=== PATIENT | female | born 1935 | race Caucasian/White ===

== ENCOUNTER 2017-07-31 17:19 | Inpatient (IN) | payer MEDICARE, OTHER ==
[2017-07-31] MEDS ORDERED: NA CHLORIDE 0.9% 100 ML IV ONE (18:16)
[2017-07-31] MEDS ORDERED: CEFEPIME 2 GM VIAL ONE (18:16)
[2017-07-31] MEDS ORDERED: NA CHLORIDE 0.9% 1,000 ML ONE ×2 (18:16→19:35)
[2017-07-31] MEDS ORDERED: FAMOTIDINE 20 MG/2 ML VIAL IV ONE (18:16)
[2017-07-31] MEDS ORDERED: VANCOMYCIN 1 GM/250 ML BAG ONE (18:16)
[2017-07-31 19:05] LABS: Urine Blood TRACE (NEG); Urine Glucose NEGATIVE (NEG); Urine Protein 1+ (NEG); Urine Specific Gravity 1.015 (1.005-1.030)
[2017-07-31 19:51] LABS: Protime INR 1.79
[2017-07-31 19:55] LABS: Potassium 3.3 mEq/L (3.6-5.0)
[2017-07-31 20:01] LABS: Albumin 2.3 g/dL (3.2-5.5); Bilirubin Direct 0.2 mg/dL (0-0.2); Magnesium 2.2 mg/dL (1.8-2.5); Protein, Total 6.9 g/dL (6.0-8.3)
[2017-07-31 20:03] LABS: CKMB Creatine Kinase MB 6.4 ng/ml (0.3-4.0)
--- NOTE | 2017-07-31 20:25 | EDPHYS ---
Physician Documentation [facility] Name: Paz Kc Age: 82 yrs Sex: Female : 1935 Arrival Date: 07/31/2017 Time: 17:21 Bed 2 Private MD: ED Physician Vimal Koch HPI: 07/31 18:06 This 82 yrs old Female presents to ER via EMS with complaints of Altered morelia Mental Status. Historical: - Allergies: 20:16 codeine; lp1 - Home Meds: 20:00 fentanyl 50 mcg/hr Topical pt72 [Active]; Probiotic oral oral [Active]; Dulcolax Oral sv [Active]; levothyroxine oral [Active]; tizanidine oral oral [Active]; Cipro Oral [Active]; Humulin 70/30 Sub-Q [Active]; - PMHx: 19:34 Diabetes - IDDM; Peripheral neuropathy; Sepsis; UTI; sv - PSHx: 19:50 Right mastectomy; sv - Immunization history:: Adult Immunizations up to date. - Social history:: Smoking status: Patient/guardian denies using tobacco. - Family history:: not pertinent. - Ebola Screening: : No symptoms or risks identified at this time. ROS: 18:07 Constitutional: Negative for fever, chills, and weight loss, Eyes: Negative for injury, morelia pain, redness, and discharge, ENT: Negative for injury, pain, and discharge, Neck: Negative for injury, pain, and swelling, Cardiovascular: Negative for chest pain, palpitations, and edema, Respiratory: Negative for shortness of breath, cough, wheezing, and pleuritic chest pain, Back: Negative for injury and pain, : Negative for injury, bleeding, discharge, and swelling, MS/Extremity: Negative for injury and deformity, Psych: Negative for depression, anxiety, suicide ideation, homicidal ideation, and hallucinations, Allergy/Immunology: Negative for hives, rash, and allergies, Endocrine: Negative for neck swelling, polydipsia, polyuria, polyphagia, and marked weight changes, Hematologic/Lymphatic: Negative for swollen nodes, abnormal bleeding, and unusual bruising. 18:07 Abdomen/GI: Positive for abdominal pain, nausea and vomiting, anorexia. 18:07 Skin: Positive for pallor. 18:07 Neuro: Positive for altered mental status, headache, hearing loss, syncope, weakness. Exam: 18:07 Constitutional: This is a well developed, well nourished patient who is awake, alert, morelia and in no acute distress. Head/Face: Normocephalic, atraumatic. Neck: Trachea midline, no thyromegaly or masses palpated, and no cervical lymphadenopathy. Supple, full range of motion without nuchal rigidity, or vertebral point tenderness. No Meningismus. Chest/axilla: Normal chest wall appearance and motion. Nontender with no deformity. No lesions are appreciated. Respiratory: Lungs have equal breath sounds bilaterally, clear to auscultation and percussion. No rales, rhonchi or wheezes noted. No increased work of breathing, no retractions or nasal flaring. Abdomen/GI: Soft, non-tender, with normal bowel sounds. No distension or tympany. No guarding or rebound. No evidence of tenderness throughout. Back: No spinal tenderness. No costovertebral tenderness. Full range of motion. Female : Normal external genitalia. MS/ Extremity: Pulses equal, no cyanosis. Neurovascular intact. Full, normal range of motion. Neuro: Awake and alert, GCS 15, oriented to person, place, time, and situation. Cranial nerves II-XII grossly intact. Motor strength 5/5 in all extremities. Sensory grossly intact. Cerebellar exam normal. Normal gait. Psych: Awake, alert, with orientation to person, place and time. Behavior, mood, and affect are within normal limits. 18:07 Eyes: Conjunctiva: pale. 18:07 Cardiovascular: Rate: tachycardic, Rhythm: Pulses: Pulses are 4+ in bilateral radial, brachial, femoral, popliteal, posterior tibial and and dorsalis pedis arteries.. Heart sounds: normal, JVD: is not appreciated. Vital Signs: 17:38 BP 106 / 75; Pulse 113; Resp 20; Temp 98.4(A); Pulse Ox 99% on R/A; sv 18:30 BP 122 / 75; Pulse 107; Resp 20; Pulse Ox 99% on R/A; sv 19:21 BP 153 / 81; Pulse 107; Resp 20; Pulse Ox 99% ; sv 19:40 BP 119 / 75; Pulse 104; Resp 22; Pulse Ox 99% on R/A; lp1 20:00 BP 142 / 91; Pulse 105; Resp 20; Pulse Ox 97% on R/A; lp1 20:20 BP 122 / 74; Pulse 104; Resp 17; Pulse Ox 98% on R/A; lp1 20:55 BP 122 / 74; Pulse 125; Pulse Ox 95% ; rv 21:00 BP 107 / 77; Pulse 111; Resp 20; Pulse Ox 98% on R/A; lp1 21:58 BP 125 / 85; Pulse 109; Resp 18; Temp 98.1(C); Pulse Ox 98% on R/A; Pain 2/10; mg2 Procedures: 20:17 Central Line: the site was prepped with Betadine, in sterile fashion, a triple lumen [facility] catheter was inserted, in the right in 1 attempts. placement was verified, by blood return, the site was dressed with using sterile technique, the patient tolerated the procedure, well. MDM: 17:36 Patient medically screened. [facility] 18:09 Data reviewed: vital signs, nurses notes, lab test result(s), EKG, radiologic studies. [facility] 07/31 18:05 Order name: Basic Metabolic Panel 07/31 18:05 Order name: BNP; Complete Time: 20:06 07/31 18:05 Order name: CBC with Diff 07/31 18:05 Order name: Ckmb 07/31 18:05 Order name: CPK 07/31 18:05 Order name: LFT's 07/31 18:05 Order name: Magnesium [facility] 07/31 18:05 Order name: PT-INR; Complete Time: 20:06 07/31 18:05 Order name: Ptt, Activated; Complete Time: 20:06 07/31 18:05 Order name: Troponin (emerg Dept Use Only); Complete Time: 20:06 07/31 18:05 Order name: Lipase 07/31 18:05 Order name: Blood Culture Adult (2) 07/31 18:05 Order name: Procalcitonin; Complete Time: 20:16 07/31 18:05 Order name: Lactate; Complete Time: 20:06 07/31 18:05 Order name: XRAY Chest (1 view) 07/31 18:05 Order name: EKG; Complete Time: 18:06 07/31 18:05 Order name: Type And Screen 07/31 18:05 Order name: TSH 07/31 18:05 Order name: Urine Culture [facility] 07/31 18:07 Order name: CT Traumagram (Head C Spine CAP wo con) [facility] 07/31 18:56 Order name: Urine Dipstick--Ancillary (enter results); Complete Time: 20:06 07/31 19:49 Order name: Shoulder Left (2 View) XRAY 07/31 20:35 Order name: CONS Physician Consult [facility] 07/31 21:17 Order name: ABO/RH no charge [facility] 07/31 18:05 Order name: Cardiac monitoring; Complete Time: 18:47 [facility] 07/31 18:05 Order name: EKG - Nurse/Tech; Complete Time: 19:40 [facility] 07/31 18:05 Order name: IV Saline Lock; Complete Time: 19:31 [facility] 07/31 18:05 Order name: Labs collected and sent; Complete Time: 19:31 [facility] 07/31 18:05 Order name: O2 Per Protocol; Complete Time: 18:47 [facility] 07/31 18:05 Order name: O2 Sat Monitoring; Complete Time: 18:48 [facility] 07/31 18:05 Order name: Urine Dipstick-Ancillary (obtain specimen); Complete Time: 18:48 [facility] 07/31 18:05 Order name: Anna; Complete Time: 18:47 [facility] 07/31 20:35 Order name: CONS Physician Consult [facility] 07/31 21:12 Order name: Shoulder Immobilizer; Complete Time: 21:13 lp1 Administered Medications: 19:26 Drug: NS 0.9% 1000 ml Route: IV; Rate: 1 bolus; Site: right femoral; mg2 20:21 Follow up: IV Status: Completed infusion; IV Intake: 1000ml lp1 19:26 Drug: Pepcid 20 mg Route: IVP; Site: right femoral; mg2 20:15 Follow up: Response: No adverse reaction lp1 19:27 Drug: vancoMYCIN 1 grams Route: IVPB; Infused Over: 2 hrs; Site: right femoral; mg2 21:32 Follow up: IV Status: Completed infusion; IV Intake: 250ml lp1 19:28 Drug: Cefepime 2 grams Route: IVPB; Rate: 200 ml/hr; Infused Over: 30 mins; Site: right mg2 femoral; 20:15 Follow up: IV Status: Completed infusion lp1 20:21 Drug: NS 0.9% 1000 ml Route: IV; Rate: 125 ml/hr; Site: right femoral; lp1 22:19 Follow up: IV Status: Infusion continued upon admission mg2 21:10 Drug: Aspirin 162 mg Route: PO; mg2 22:16 Follow up: Response: No adverse reaction mg2 Point of Care Testing: Blood Glucose: 18:20 Blood Glucose: 119 mg/dL; sv Ranges: Critical Glucose Levels:Adult <50 mg/dl or >400 mg/dl <40 mg/dl or >180 mg/dl Disposition: 07/31/17 20:25 Hospitalization ordered by Alan Brooks for Inpatient Admission. Preliminary diagnosis are Altered mental status, unspecified, Weakness, Unspecified kidney failure, Type 1 diabetes mellitus, Fracture of shaft of humerus - pathologic, Hypokalemia, Non-ST elevation (NSTEMI) myocardial infarction. - Bed requested for Intensive Care Unit. - Status is Inpatient Admission. mg2 - Condition is Stable. - Problem is new. - Symptoms have improved. UTI on Admission? No Signatures: Dispatcher [employer] EDRadha Molina RN RN Alethea Cornejo RN RN Vimal Koch MD MD cha Pena, Laura, RN RN lp1 Lilliam Dias Michele, RN RN mg2 Corrections: (The following items were deleted from the chart) 20:43 20:25 Hospitalization Ordered by Alan Brooks MD for Inpatient Admission. Preliminary eb diagnosis is Altered mental status, unspecified; Weakness; Unspecified kidney failure; Type 1 diabetes mellitus; Fracture of shaft of humerus; Hypokalemia; Non-ST elevation (NSTEMI) myocardial infarction. Bed requested for Intensive Care Unit. Status is Inpatient Admission. Condition is Stable. Problem is new. Symptoms have improved. UTI on Admission? No. morelia 20:43 20:43 07/31/2017 20:25 Hospitalization Ordered by Alan Brooks MD for Inpatient Admission. Preliminary diagnosis is Altered mental status, unspecified; Weakness; Unspecified kidney failure; Type 1 diabetes mellitus; Fracture of shaft of humerus; Hypokalemia; Non-ST elevation (NSTEMI) myocardial infarction. Bed requested for Intensive Care Unit. Status is Inpatient Admission. Condition is Stable. Problem is new. Symptoms have improved. UTI on Admission? No. eb 20:46 20:43 07/31/2017 20:25 Hospitalization Ordered by Alan Brooks MD for Inpatient morelia Admission. Preliminary diagnosis is Altered mental status, unspecified; Weakness; Unspecified kidney failure; Type 1 diabetes mellitus; Fracture of shaft of humerus; Hypokalemia; Non-ST elevation (NSTEMI) myocardial infarction. Bed requested for Intensive Care Unit. Status is Inpatient Admission. Condition is Stable. Problem is new. Symptoms have improved. UTI on Admission? No. mw 21:13 20:21 Splint ordered. morelia lp1 22:27 20:46 07/31/2017 20:25 Hospitalization Ordered by Alan Brooks MD for Inpatient mg2 Admission. Preliminary diagnosis is Altered mental status, unspecified; Weakness; Unspecified kidney failure; Type 1 diabetes mellitus; Fracture of shaft of humerus - pathologic; Hypokalemia; Non-ST elevation (NSTEMI) myocardial infarction. Bed requested for Intensive Care Unit. Status is Inpatient Admission. Condition is Stable. Problem is new. Symptoms have improved. UTI on Admission? No. morelia
--- NOTE | 2017-07-31 20:25 | ER ---
Nurse's Notes [facility] Name: Paz Kc Age: 82 yrs Sex: Female : 1935 Arrival Date: 07/31/2017 Time: 17:21 Bed 2 Private MD: Diagnosis: Altered mental status, unspecified;Weakness;Unspecified kidney failure;Type 1 diabetes mellitus;Fracture of shaft of humerus-pathologic;Hypokalemia;Non-ST elevation (NSTEMI) myocardial infarction Presentation: 07/31 17:18 Presenting complaint: EMS states: Pt traveled down from [place] yesterday to [place] sv went to bed last night around 1999, woke up this morning with AMS. Pt recently diagnosed with UTI in [place] and has been taking her Cipro. Pt not answering questioning correctly. Pt not eating or drinking like normal. BS-140 BP 130/80 HR 104 with unifocal PVCs. Transition of care: patient was not received from another setting of care. Onset of symptoms was July 31, 2017. 17:18 Method Of Arrival: EMS: [facility] sv 17:18 Acuity: AUBREY 2 sv 17:19 Risk Assessment: Do you want to hurt yourself or someone else? Patient reports no sv desire to harm self or others. Care prior to arrival: None. 17:38 Initial Sepsis Screen: Does the patient meet any 2 criteria? Altered Mental Status. HR sv > 90 bpm. Yes Does the patient have a suspected source of infection? Yes: Dysuria/Frequency/Urgency/UTI If YES to both, name of provider notified: Vimal Koch MD. Triage Assessment: 17:38 General: Appears uncomfortable, unkempt, Received pt naked with a brief on.. Behavior sv is cooperative, Smells of urine. Pt stated she's unable to roll on her side for me to assess her buttocks. Pt has about 3 paper chucks underneath her that are saturated in urine.. Pain: Complains of pain in left arm, right leg and left leg Pain currently is 5 out of 10 on a pain scale. Is continuous. EENT: No signs and/or symptoms were reported regarding the EENT system. Neuro: Level of Consciousness is awake, alert, obeys commands, confused, Oriented to person, Weakness in bilateral arm(s) leg(s) Speech is normal. Cardiovascular: Patient's skin is warm and dry. Pulses are 2+ in right radial artery and left radial artery. Respiratory: Respiratory effort is even, unlabored, Respiratory pattern is regular, symmetrical. GI: Abdomen is flat, non-distended, Abd is soft and non tender X 4 quads. : Parent/caregiver report the patient having being treated for a UTI. Derm: Skin is normal. Musculoskeletal: Range of motion: limited in left shoulder and left elbow Swelling present in anterior aspect of left shoulder. Historical: - Allergies: 20:16 codeine; lp1 - Home Meds: 20:00 fentanyl 50 mcg/hr Topical pt72 [Active]; Probiotic oral oral [Active]; Dulcolax Oral sv [Active]; levothyroxine oral [Active]; tizanidine oral oral [Active]; Cipro Oral [Active]; Humulin 70/30 Sub-Q [Active]; - PMHx: 19:34 Diabetes - IDDM; Peripheral neuropathy; Sepsis; UTI; sv - PSHx: 19:50 Right mastectomy; sv - Immunization history:: Adult Immunizations up to date. - Social history:: Smoking status: Patient/guardian denies using tobacco. - Family history:: not pertinent. - Ebola Screening: : No symptoms or risks identified at this time. Screenin:37 Abuse screen: Denies threats or abuse. Denies injuries from another. Nutritional sv screening: No deficits noted. Tuberculosis screening: No symptoms or risk factors identified. Fall Risk Fall in past 12 months (25 points). Secondary diagnosis (15 points) impaired mobility, IV access (20 points). Ambulatory Aid- None/Bed Rest/Nurse Assist (0 pts). Gait- Weak (10 pts.). Mental Status- Overestimates/Forgets Limitations (15 pts.). Total Salazar Fall Scale indicates High Risk Score (45 or more points). Fall prevention measures have been instituted. Side Rails Up X 2 Frequent Obs/Assessments Occuring Family Present and informed to notify staff if the need to leave the bedside As available patient and family educated on Fall Prevention Program and Strategies. Assessment: 17:40 Reassessment: Spouse reports that she was taken off of hospice about 3 weeks ago to be sv able to move down here from [place]. 18:30 Reassessment: Patient appears in no apparent distress at this time. No changes from sv previously documented assessment. Patient and/or family updated on plan of care and expected duration. Pain level reassessed. 18:40 Reassessment: Patient cleaned of urinary incontinence and GARZA placed and adhered to L ss upper thigh. 18:49 Reassessment: Dr. Koch at bedside prepping patient for central line placement. ss 19:48 Reassessment: Patient and/or family updated on plan of care and expected duration. Pain mg2 level reassessed. Patient is alert, oriented x 3, equal unlabored respirations, skin warm/dry/pink. 20:00 General: Appears in no apparent distress. Behavior is calm. Pain: Complains of pain in lp1 generalized Quality of pain is described as aching. Neuro: Level of Consciousness is awake, Oriented to person, place, Pupils are PERRLA, Burning in right leg and left leg, related to neuropathy. Cardiovascular: Patient's skin is warm and dry. Rhythm is sinus tachycardia. Respiratory: Airway is patent Respiratory effort is even, Respiratory pattern is regular, Breath sounds are diminished bilaterally. GI: Abdomen is round non-distended, Bowel sounds present X 4 quads. : Garza in place to gravity drainage Urine is cloudy. EENT: No signs and/or symptoms were reported regarding the EENT system. Derm: Skin is fragile, is thin, Skin is dry, Skin is pale. Musculoskeletal: Circulation, motion, and sensation intact. 21:00 Reassessment: Patient appears in no apparent distress at this time. Patient and/or lp1 family updated on plan of care and expected duration. Pain level reassessed. Daughter at bedside, giving water to patient, patient tolerating well. 22:00 Reassessment: Patient appears in no apparent distress at this time. at bedside. mg2 Neuro: Level of Consciousness is awake, Oriented to person, place. Vital Signs: 17:38 BP 106 / 75; Pulse 113; Resp 20; Temp 98.4(A); Pulse Ox 99% on R/A; sv 18:30 BP 122 / 75; Pulse 107; Resp 20; Pulse Ox 99% on R/A; sv 19:21 BP 153 / 81; Pulse 107; Resp 20; Pulse Ox 99% ; sv 19:40 BP 119 / 75; Pulse 104; Resp 22; Pulse Ox 99% on R/A; lp1 20:00 BP 142 / 91; Pulse 105; Resp 20; Pulse Ox 97% on R/A; lp1 20:20 BP 122 / 74; Pulse 104; Resp 17; Pulse Ox 98% on R/A; lp1 20:55 BP 122 / 74; Pulse 125; Pulse Ox 95% ; rv 21:00 BP 107 / 77; Pulse 111; Resp 20; Pulse Ox 98% on R/A; lp1 21:58 BP 125 / 85; Pulse 109; Resp 18; Temp 98.1(C); Pulse Ox 98% on R/A; Pain 2/10; mg2 ED Course: 17:21 Patient arrived in ED. sv 17:21 Radha Pan, RN is Primary Nurse. sv 17:26 Triage completed. sv 17:30 Arm band placed on right wrist. sv 17:30 Patient has correct armband on for positive identification. Placed in gown. Bed in low sv position. Side rails up X2. Adult w/ patient. monitoring coordinator on. Pulse ox on. NIBP on. Warm blanket given. 17:36 Vimal Koch MD is Attending Physician. morelia 17:50 Missed attempt(s): 18 gauge in left EJ, by Dr Koch x4 attempts. Bleeding sv controlled, band aid applied, catheter tip intact. 18:20 Inserted saline lock: 24 gauge in right ,using aseptic technique. 2nd knuckle Flushed sv right with 5 ml normal saline. 18:40 Garza cath inserted, using sterile technique, 16 Fr., by ED staff, balloon inflated, to ss gravity drainage, urine specimen collected. returned trice urine. Patient tolerated well. 18:45 Radiology exam delayed due to CENTRAL LINE BEING PLACED. ag1 18:50 Urine collected: Garza catheter specimen, cloudy. sv 19:00 Assisted provider with central line placement. Set up central line tray. Triple lumen sv line placed in right femoral. Line placed by Vimal Koch MD Placement verified by blood return, Dressed with Tegaderm, Blood was collected. Patient tolerated well. Before procedure, did Practitioner(s) obtain informed consent? No. Patient \T\ family education about procedure, CLABSI prevention and S/S of infection? Yes. Time-out/Briefing performed prior to start of procedure? Yes. Was handwashing/sanitizing done immediately prior to procedure? Yes. Was patient positioned to in a way to prevent air embolism? Yes. Was procedure site sterilized? Yes, with chlorhexidine. Was the site allowed to dry? Yes. Was local anesthetic and/or sedation utilized? Yes. During the procedure, did the Practitioner(s) maintain a sterile field? Yes. Were unused ports clamped during insertion? Yes. Was a 2nd qualified MD obtained after 3 unsuccessful insertion attempts? Yes. Was blood aspirated from each lumen? Yes. After the procedure, did the Practitioner(s) clean the site and apply a sterile dressing? Yes. 19:00 First set of blood cultures drawn by physician. T\T\S collected, blood band applied to sv patient. 19:15 Second set of blood cultures drawn by physician. sv 19:20 One-on-one care X 120 minutes. sv 19:20 Report given to Shanel AGUILAR. sv 19:58 Primary Nurse role handed off by Radha Pan RN sv 20:01 X-ray completed. Portable x-ray completed in exam room. Patient tolerated procedure ag1 well. 20:04 XRAY Chest (1 view) In Process Unspecified. EDMS 20:04 CT Traumagram (Head C Spine CAP wo con) In Process Unspecified. EDMS 20:04 Shoulder Left (2 View) XRAY In Process Unspecified. EDMS 20:22 Alan Brooks MD is Hospitalizing Provider. [facility] 20:27 Shanel Segura, JEFF is Primary Nurse. lp1 21:10 Patient admitted, IV remains in place. lp1 21:12 Shoulder immobilizer applied on left shoulder. lp1 Administered Medications: 19:26 Drug: NS 0.9% 1000 ml Route: IV; Rate: 1 bolus; Site: right femoral; mg2 20:21 Follow up: IV Status: Completed infusion; IV Intake: 1000ml lp1 19:26 Drug: Pepcid 20 mg Route: IVP; Site: right femoral; mg2 20:15 Follow up: Response: No adverse reaction lp1 19:27 Drug: vancoMYCIN 1 grams Route: IVPB; Infused Over: 2 hrs; Site: right femoral; mg2 21:32 Follow up: IV Status: Completed infusion; IV Intake: 250ml lp1 19:28 Drug: Cefepime 2 grams Route: IVPB; Rate: 200 ml/hr; Infused Over: 30 mins; Site: right mg2 femoral; 20:15 Follow up: IV Status: Completed infusion lp1 20:21 Drug: NS 0.9% 1000 ml Route: IV; Rate: 125 ml/hr; Site: right femoral; lp1 22:19 Follow up: IV Status: Infusion continued upon admission mg2 21:10 Drug: Aspirin 162 mg Route: PO; mg2 22:16 Follow up: Response: No adverse reaction mg2 Point of Care Testing: Blood Glucose: 18:20 Blood Glucose: 119 mg/dL; sv Ranges: Intake: 20:21 IV: 1000ml; Total: 1000ml. lp1 20:21 IV: 1000ml (IV Fluid); Total: 2000ml. lp1 21:32 IV: 250ml; Total: 2250ml. lp1 Output: 22:18 Urine: 650ml (Garza); Total: 650ml. mg2 Outcome: 20:25 Decision to Hospitalize by Provider. [facility] 21:10 Condition: stable lp1 21:10 Instructed on the need for admit, to patient's and daughter 22:20 Admitted to ICU accompanied by nurse, via stretcher, room 7, on monitor, with chart, mg2 Report called to Nurse Bustillo 22:27 Patient left the ED. mg2 Signatures: Dispatcher [employer] EDMS Radha Pan, RN RN sv Vimal Koch MD MD cha Smirch, Shelby, RN RN ss Shanel Segura RN RN lp1 Enma Sandoval ag1 Robi Pandey, JEFF AGUILAR mg2 Elie York RN RN rv Corrections: (The following items were deleted from the chart) 22:19 22:18 Urine 650, (Garza), Output Total 650. mg2 mg2 22:21 22:20 Admitted to ICU accompanied by nurse, via stretcher, on monitor, with chart, mg2 Report called to Nurse Bustillo mg2
[2017-07-31 20:27] LABS: Absolute Lymphocytes (CBC) 0.9 K/uL (0.7-4.9); Absolute Monocytes 1.2 K/uL (0.1-1.3); Absolute Neutrophil 11.1 K/uL (1.8-8.0); Basophils % 0.4 % (0-1.3); Eosinophils % 0.1 % (0-4.4); Hematocrit 41.8 % (36.0-45.0); MCH 28.1 pg (27.0-35.0); MCV 82.2 fL (80-100); MPV 8.5 fL (7.6-11.3); Monocytes % 9.2 % (3.3-12.3); RBC Red Blood Cell Count 5.08 M/uL (3.86-4.86)
[2017-07-31 20:33] LABS: Thyroid Stimulating Hormone 2.44 uIU/mL (0.34-5.60)
[2017-07-31] MEDS ORDERED: ASPIRIN EC 81 MG TAB PO ONE (20:35)
--- NOTE | 2017-07-31 20:37 | RAD REPORT ---
EXAM DESCRIPTION: CT - Head C Spine Cap Wo Con - 07/31/2017 8:04 pm CLINICAL HISTORY: Head and neck pain. Radiculopathy. Chest and abdominal pain. Genitourinary infecti on. TECHNIQUE: Computed axial tomography of the head and cervical spine was obtained. Coronal and sagitt al reconstruction was performed Computed axial tomography of the chest, abdomen and pelvis was obtained. Contrast was not requested. All CT scans are performed using dose optimization technique as appropriate and may include automated exposure control or mA/KV adjustment according to patient size. COMPARISON: None FINDINGS: The evaluation of the mediastinum, tessa, vessels, solid organs and bowel is limited second andrés to lack of contrast administration. Mild low-density areas within periventricular, deep and subcortical white matter likely represent isc hemic changes secondary to small vessel disease. An intracranial bleed is not noted. The ventricles are normal caliber. An extra-axial fluid collection is not noted. Fluid is present within the sphenoid sinus. A cervical fracture is not seen. No dislocation is noted. A large anterior osteophyte C6-7 results in narrowing of the thecal sac which measures 8 millimeters. Spondylosis at this level results in marke d narrowing of the left neural foramina. Spondylosis C5-6 results in moderate to marked narrowing of the neural foramina bilaterally. Basilar invagination involves C2 A 26 millimeter nodule is present within the right upper lobe. A 13 millimeter left upper lobe nodule seen. A 14 millimeter right middle lobe nodules present. A conglomerate of right paratracheal lymph nodes measures 6.2 x 3.4 centimeters in total. A [address] anterior mediastinal lymph node is present. Additional smaller mediastinal and right hilar lymph nodes are present. An 18 millimeter lesion involves the posterior tenth left rib resulting in a fracture. Multiple thora cic and lumbar vertebral lesions are present. Proximal femora lesions are seen. Pelvic bone lesions a re noted. Pathologic left humeral fracture is seen. Additional rib lesions are present. The liver, spleen, pancreas and kidneys demonstrate no gross abnormality. Bilateral adrenal masses ar e noted. A Anna catheter is present within the bladder. IMPRESSION: 1. No acute intracranial abnormality is seen. 2. A cervical fracture is not visualized. 3. 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 4, 4. Lung nodules, adrenal masses, bone lesions and lung nodules consistent with metastatic disease
[2017-07-31] MEDS ORDERED: ONDANSETRON 4 MG/2 ML VIAL IV PRN (21:57)
[2017-07-31] MEDS ORDERED: ACETAMINOPHEN 500 MG TAB PO PRN (21:57)
[2017-07-31] MEDS: NA CHLORIDE 0.9% 1,000 ML IV SCH (22:00)
--- NOTE | 2017-07-31 22:14 | P.HP ---
Certification for Inpatient Patient admitted to: Inpatient With expected LOS: >2 Midnights Practitioner: I am a practitioner with admitting privileges, knowledge of patient current condition, hospital course, and medical plan of care. Services: Services provided to patient in accordance with Admission requirements found in Title 42 Section 412.3 of the Code of Federal Regulations Patient History Date of Service: 07/31/17 Reason for admission: acute encephalopathy History of Present Illness: Ms cK is an 82 years old woman with history of breast cancer, hypothyroidism , IDDM, osteomyelitis, who is mostly bed bound for the last year, recently moved from [place], came to ED because decreased level of conscious. According to her , who is the one who provide the history, the patient was more sleepy than usual today. She was also confused and disoriented. No history of fever or chills. She has been treated with PO Cipro due to recent diagnosis or UTI. At my encounter, the patient is awake and alert, and able to answer my questions, she complain of pain all over. Lab work remarkable for leukocytosis, abnormal renal function, elevated tropoinin I, hypokelemia, and elevated procalcitonin. She had a CT head/cervical spine/chest/abd/pelvis which was negative for intracranial abnormalities, however she has lung nodules, adrenal masses, bone lesions and lung nodules consistent with metastatic disease. Allergies codeine Allergy (Unverified 07/31/17 21:18) Itching/Hives/Rash - Past Medical/Surgical History -: History of breast cancer -: IDDM -: Hypothyroidism -: Mastectomy - Family History Family History: Reviewed- Non-Contributory - Social History CD- Drugs: No Place of Residence: Home Review of Systems 10-point ROS is otherwise unremarkable Physical Examination - Physical Exam General: Alert HEENT: Atraumatic, PERRLA, Mucous membr. moist/pink, EOMI, Sclerae nonicteric Neck: Supple, 2+ carotid pulse no bruit, No LAD, Without JVD or thyroid abnormality Respiratory: Normal air movement, Other (coarse bilateral) Cardiovascular: Regular rate/rhythm, Normal S1 S2 Gastrointestinal: Normal bowel sounds, No tenderness Musculoskeletal: No tenderness Integumentary: No rashes Neurological: Normal speech, Normal tone, Abnormal affect (flat) Lymphatics: No axilla or inguinal lymphadenopathy - Studies Laboratory Data (last 24 hrs) 07/31/17 19:00: PT 21.3 H, INR 1.79, APTT 18.6 L 07/31/17 19:00: WBC 13.3 H, Hgb 14.3, Hct 41.8, Plt Count 193 07/31/17 19:00: B-Natriuretic Peptide 52 07/31/17 19:00: Sodium 134 L, Potassium 3.3 L, BUN 68 H, Creatinine 2.40 H, Glucose 133 H, Magnesium 2.2, Total Bilirubin 1.0, AST 35, ALT 20, Alkaline Phosphatase 104, Lipase 21 L Assessment and Plan - Problems (Diagnosis) (1) Acute encephalopathy Current Visit: Yes Status: Acute (2) UTI (urinary tract infection) Current Visit: Yes Status: Acute Qualifiers: Urinary tract infection type: acute cystitis Hematuria presence: without hematuria Qualified Code(s): N30.00 - Acute cystitis without hematuria (3) Metastatic cancer Current Visit: Yes Status: Acute (4) IDDM (insulin dependent diabetes mellitus) Current Visit: Yes Status: Acute - Plan The patient will be admitted to the hospital due to acute encephalopathy. She has leukocytosis, and elevated procalcitonin, she is currently taking oral Cipro due to UTI. Will change antibiotics to Ceftriaxone, blood and urine culture are in process. Will order IV fluids, consult nephrology. The patient has no had chest pain, troponin I is elevated. Cardiology was consulted. Will repeat serial troponin I. The patient has metastatic disease, with not clear primary. I have spoken with her and daughter about current status and prognosis. They need to decide goals and further plan for the patient. At this consider Hospice as potential option. - Advance Directives Does patient have a Living Will: No Does patient have a Durable POA for Healthcare: No - Code Status/Comfort Care Code Status Assessed: Yes Code Status: Do Not Resuscitate
--- NOTE | 2017-07-31 22:27 | RAD REPORT ---
EXAM DESCRIPTION: Song Single View07/31/2017 8:04 pm CLINICAL HISTORY: Chest pain COMPARISON: none FINDINGS: A large mediastinal mass is present. Bilateral pulmonary nodules are seen. The heart is n ormal size. A pathologic fracture involves the left humerus. IMPRESSION: Metastatic disease
[2017-08-01] MEDS: INSULIN -REGULAR HUMAN 50 UNIT/0.5 ML ML SQ SCH ×5 (00:01→21:00)
[2017-08-01] MEDS: KCL 20 MEQ/100 mL IVPB 20 MEQ/100 ML BAG IV SCH ×2 (00:29→01:43)
[2017-08-01 05:18] LABS: Albumin 2.2 g/dL (3.2-5.5); Bilirubin Total 0.7 mg/dL (0.3-1.2); Potassium 4.2 mEq/L (3.6-5.0); Protein, Total 6.1 g/dL (6.0-8.3)
[2017-08-01] MEDS: NA CHLORIDE 0.9% 1,000 ML IV SCH ×2 (07:09→17:48)
[2017-08-01 08:22] LABS: CKMB Creatine Kinase MB 5.7 ng/ml (0.3-4.0); Uric Acid 9.2 mg/dL (2.6-8.0)
[2017-08-01] MEDS ORDERED: ASPIRIN 81 MG CHEWABLE TABLET PO SCH (09:00)
[2017-08-01] MEDS ORDERED: CIPROFLOXACIN 400mg IV 200 ML IV SCH (09:00)
[2017-08-01] MEDS ORDERED: CEFTRIAXONE 1 GM/NS 50 ML 1 GM/50 ML BAG IV SCH (09:00)
[2017-08-01] MEDS: CEFTRIAXONE/SWI 1gm 1 GM/10 ML SYR IV SCH (09:04)
[2017-08-01] MEDS: ENOXAPARIN 80 MG/0.8 ML SQ SCH (09:05)
--- NOTE | 2017-08-01 10:15 | RAD REPORT ---
EXAM DESCRIPTION: US - Renal Ultrasound-Complete - 08/01/2017 9:23 am CLINICAL HISTORY: . Renal failure COMPARISON: None. FINDINGS: The right kidney measures 10 cm with a normal echotexture. The left kidney measures 10 cm with a normal echotexture. A 1 centimeters cyst extends off of the upp er pole Hydronephrosis is not seen. IMPRESSION: 1 centimeter left renal cyst
--- NOTE | 2017-08-01 10:15 | RAD REPORT ---
EXAM DESCRIPTION: RAD - Shoulder Left 2 View - 07/31/2017 8:05 pm CLINICAL HISTORY: Left shoulder pain FINDINGS: A lucency is present within the proximal left humerus measuring 8 centimeters. A pathologi c fracture is seen in this region with mild displacement of the fracture fragments. The bones are ost eoporotic
[2017-08-01] MEDS ORDERED: FENTANYL CITR 100 MCG/2 ML IV PRN (12:11)
[2017-08-01] MEDS ORDERED: NAPROXEN 250 MG TAB PO PRN (12:19)
[2017-08-01] MEDS ORDERED: FENTANYL CITR 100 MCG/2 ML IV ONE (14:47)
--- NOTE | 2017-08-01 15:02 | EKG ---
Test Date: 2017-07-31 Test Time: 19:36:45 Medical Office Supervisor: MG MEASUREMENT RESULTS: Intervals: Rate: 104 WY: 152 QRSD: 94 QT: 342 QTc: 449 [place]: P: 50 WY: 152 QRS: -39 T: 78 INTERPRETIVE STATEMENTS: Sinus tachycardia Possible Left atrial enlargement Left axis deviation Left ventricular hypertrophy with repolarization abnormality Cannot rule out Septal infarct, age undetermined Abnormal ECG No previous ECG available for comparison Electronically Signed On 08-01-17 14:59:13 CDT by Hero Bradley
--- NOTE | 2017-08-01 15:02 | EKG ---
Test Date: 2017-07-31 Test Time: 19:51:50 Motorcycle Service Technician: MG MEASUREMENT RESULTS: Intervals: Rate: 91 [place]: 174 QRSD: 88 QT: 344 QTc: 423 [place]: P: 36 OH: 174 QRS: 46 T: 4 INTERPRETIVE STATEMENTS: Normal sinus rhythm Normal ECG No previous ECG available for comparison Electronically Signed On 08-01-17 14:59:12 CDT by Hero Bradley
--- NOTE | 2017-08-01 15:02 | EKG ---
Test Date: 2017-07-31 Test Time: 19:51:20 Assistant Librarian: MEASUREMENT RESULTS: Intervals: Rate: 89 IA: 178 QRSD: 88 QT: 324 QTc: 394 [place]: P: 36 IA: 178 QRS: 47 T: -1 INTERPRETIVE STATEMENTS: Normal sinus rhythm Normal ECG Compared to ECG 07/31/2017 19:36:45 Sinus tachycardia no longer present Left-axis deviation no longer present Left ventricular hypertrophy no longer present Early repolarization no longer present Myocardial infarct finding no longer present Electronically Signed On 08-01-17 14:59:12 CDT by Hero Bradley
--- NOTE | 2017-08-01 15:26 | ECHO ---
HEIGHT: 5 ft 9 in WEIGHT: 169 lb 3.2 oz DATE OF STUDY: 08/01/[address]: 2-DIMENSIONAL: YES M.MODE: YES DOPPLER: YES COLOR FLOW: YES TDS: NO PORTABLE: NO DEFINITY: NO BUBBLE STUDY: NO DIAGNOSIS: NSTEMI CARDIAC HISTORY: CATHERIZATION: NO SURGERY: NO PROSTHETIC VALVE: NO PACEMAKER: NO MEASUREMENTS (cm) DIASTOLIC (NORMALS) SYSTOLIC (NORMALS) IVSd 0.9 (0.6-1.2) LA Diam (1.9-4.0) LVEF 66% LVIDd 3.2 (3.5-5.7) LVIDs 2.1 (2.0-3.5) %FS 35% LVPWd 0.9 (0.6-1.2) Ao Diam 2.7 (2.0-3.7) 2 DIMENSIONAL ASSESSMENT: RIGHT ATRIUM: NORMAL LEFT ATRIUM: NORMAL RIGHT VENTRICLE: NORMAL LEFT VENTRICLE: NORMAL TRICUSPID VALVE: NORMAL MITRAL VALVE: NORMAL PULMONIC VALVE: NORMAL AORTIC VALVE: SCLEROSIS PERICARDIAL EFFUSION: NONE AORTIC ROOT: NORMAL LEFT VENTRICULAR WALL MOTION: NORMAL DOPPLER/COLOR FLOW: INCOMPLETE COMMENTS: TECHNICALLY DIFFICULT STUDY DUE TO PATIENT REQUESTING TO STOP TEST. AORTIC SCLEROSIS. CANNOT RULE OUT MILD STENOSIS WITH NO DOPPLER. MILD TRICUSPID REGURGITATION. NORMAL RIGHT VENTRICULAR SYSTOLIC PRESSURE. TECHNOLOGIST: CHIRAG ESCOABR
--- NOTE | 2017-08-01 17:33 | PN ---
Date of Progress Note: 08/01/2017 Subjective: The patient is seen and examined. Chart reviewed and case discussed with RN and Dr. Jeremias sparks. The patient's family at bedside. The patient keeps complaining of pain overall including shoulde r and back, stepped out of ICU this morning. Review of Systems: Limited due to patient's medical condition; however, negative otherwise. Medications: Reviewed. Physical Examination: Vital Signs: Temperature 96.8, heart rate 82, blood pressure 100/59, respirations 15, and O2 99% on 1 L via nasal cannula. General: Awake, alert, oriented x2. Moderate distress due to pain. Elderly female, frail, ill-appe aring. CV: S1, S2. Systolic murmur 3/6. Regular rate and rhythm. Peripheral pulses are weak bilaterally. Respiratory: Moving air well bilaterally. No wheezing. Gastrointestinal: Abdomen is soft, nontender, nondistended. Positive bowel sounds. Extremities: No clubbing, cyanosis, or edema. Neurologic: Nonfocal. Musculoskeletal: Tenderness to palpation, left shoulder, which is in immobilizer. Laboratory Data: Sodium 136, potassium 4.2, chloride 100, CO2 27, BUN 73, creatinine 2.10, glucose 1 65, uric acid 9.2, calcium 9.9, troponin 0.051, 0.46. Albumin 2.2. Urine culture and blood cultures pending. Renal ultrasound shows 1 cm left renal cyst. Assessment And Plan: An 82-year-old female with: 1.Acute metabolic encephalopathy, likely related to urinary tract infection and metastatic disease. The patient is more alert and oriented x2. Continues to be in pain. 2.Urinary tract infection. Acute cystitis without hematuria. We will continue Rocephin. Follow up on urine culture. 3.Diffuse metastatic disease, likely stage IV, with an unclear primary and may be recurrent breast c ancer. She was initially diagnosed in the 60s and had mastectomy. I spoke with oncologist on-call, Dr. Carroll. She agrees with overall poor prognosis, incurable stage IV disease of unknown primary. Re commend hospice care. 4.Diabetes mellitus type 2, insulin dependent with hyperglycemia. We will continue sliding scale in sulin. 5.Hypothyroidism. Continue Synthroid. 6.Acute versus acute on chronic kidney injury. Creatinine slightly improved. We will continue with IV fluid hydration. 7.Non-ST elevation myocardial infarction. Troponin level elevated at 0.51 on therapeutic Lovenox. The patient is n.p.o. due to aspiration risk. 8.Dysphagia. The patient at risk for aspiration, failed bedside swallow study. We will obtain rocío fied barium swallow study. Continue speech therapy. Plan: Overall, very poor prognosis. Recommend going back on hospice. The patient's family stated t hat she has used [facility] previously. would like some time to discuss with the patient and make a decision. For now, we will continue active care. The patient is do not resuscitate. We will swapnil nue with pain control. /LUDA Voice ID: [id number] Report ID: [id number]
[2017-08-01] MEDS: METHOCARBAMOL 1,000 MG in NA CHLORIDE 0.9% 100 ML IV PRN (17:46)
[2017-08-01] MEDS ORDERED: TIZANIDINE 4 MG TABLET PO SCH (18:00)
[2017-08-01] MEDS: FENTANYL CITR 100 MCG/2 ML IV PRN (22:22)
[2017-08-02] MEDS: NA CHLORIDE 0.9% 1,000 ML IV SCH (03:18)
--- NOTE | 2017-08-02 05:40 | CON ---
Date of Consultation: 08/01/2017 Additional Admitting Physician: Katy Steele MD. Reason For Consultation: Elevated troponin. History Of Present Illness: Ms. Kc is an 82-year-old woman who came into the emergency room with altered mental status, renal failure, and was noted to have elevated troponin. I was consulted. She is a DNR. She has metastatic breast cancer. There is a consideration for hospice. Chest x-ray [place] wed metastatic disease. Did not really have any chest pain. Past Medical History: As stated above. Allergies: NONE. Review of Systems: Negative. Social History: Negative. Family History: Noncontributory. Physical Examination: General: Ms. Kc was rather somnolent, slightly confused, sinus rhythm. Vital signs: Stable. HEENT: Negative. Neck: Supple with no bruit. Chest: Clear. Cardiac: Revealed a regular rhythm and rate with an S4 gallops. No murmurs or rubs. Abdomen: Benign. Extremities: Revealed no clubbing, cyanosis, or edema. Diagnostic Data: Creatinine 2.10 troponin 0.54. Chest x-ray showed metastatic disease __ lymphadenopathy. Impression And Plan: 1.Elevated troponin, most likely secondary to renal failure. 2.Altered mental status, possibly secondary to metastatic breast cancer. 3.Elevated white count. 4.Diabetes. 5.Hypothyroidism. Apparently, there is a talk about the hospice care. The patient is a DNR. Echocardiogram is pending . I will check that before making a final decision, but I certainly would not get very aggressive wi th Ms. Kc. Her creatinine needs to be watched carefully. NB/MODL Voice ID: [id number] Report ID: [id number]
[2017-08-02] MEDS ORDERED: LEVOTHYROXINE SOD 0.075 MG TAB PO SCH (06:00)
[2017-08-02 06:29] LABS: Albumin 2.2 g/dL (3.2-5.5); Potassium 4.2 mEq/L (3.6-5.0); Thyroid Stimulating Hormone 1.17 uIU/mL (0.34-5.60)
[2017-08-02] MEDS: FENTANYL CITR 100 MCG/2 ML IV PRN (07:11)
[2017-08-02] MEDS: INSULIN -REGULAR HUMAN 50 UNIT/0.5 ML ML SQ SCH ×2 (07:30→12:45)
[2017-08-02] MEDS: ENOXAPARIN 80 MG/0.8 ML SQ SCH (08:20)
[2017-08-02] MEDS: CEFTRIAXONE/SWI 1gm 1 GM/10 ML SYR IV SCH (08:21)
[2017-08-02] MEDS ORDERED: FENTANYL 50 MCG/PATCH TD SCH (09:00)
[2017-08-02] MEDS ORDERED: DOCUSATE NA 100 MG CAP PO SCH (09:00)
[2017-08-02] MEDS ORDERED: LACTOBACILLUS/ACIDOPHILUS TAB PO SCH (09:00)
[2017-08-02] MEDS: METHOCARBAMOL 1,000 MG in NA CHLORIDE 0.9% 100 ML IV PRN (10:50)
--- NOTE | 2017-08-02 14:25 | DS ---
Date of Discharge: 08/02/2017 Consultants: 1.Dr. Bradley with Cardiology. 2.Dr. Montes with Nephrology. Admitting Diagnoses: 1.[id number] myocardial infarction. 2.Acute metabolic encephalopathy. 3.Urinary tract infection, acute cystitis without hematuria. 4.Metastatic cancer. 5.Diabetes mellitus type 2, insulin requiring with hyperglycemia. Discharge Diagnoses: 1.Acute metabolic encephalopathy related to urinary tract infection and metastatic disease. 2.Urinary tract infection, acute cystitis without hematuria. 3.Diffuse metastatic disease, stage 4 cancer, not a candidate for treatment, palliative only, incura ble disease. Oncology recommends hospice. 4.Diabetes mellitus type 2, insulin dependent with hyperglycemia. 5.Hypothyroidism. We will continue with Synthroid. 6.Acute versus acute on chronic kidney injury. Creatinine improved slightly. 7.Dysphagia. 8.Pathologic left humerus fracture. 9.Severe protein-calorie malnutrition. Hospital Course: The patient is an 82-year-old female with a past medical history of breast cancer, diabetes, who was recently on hospice for multiple diabetic wounds and had refused surgical intervent ion and failed IV antibiotic therapy, who comes in for worsening condition, confusion, and generalize d weakness. Upon arrival, the patient was found to have a shoulder fracture with osteoporotic bones. The patient was in significant amount of pain. The patient had a CT done, which showed diffuse met astatic disease in the ribs, spine, lung nodules, adrenals, consistent with metastatic disease, prima ry was unknown, may be related to previous history of breast cancer versus new primary. Dr. Glen khan Oncology was contacted, who recommended hospice care for the patient as this is incurable stage 4 d isease. Family was informed of her condition, which was not doing well. The patient's family did no t wish to be aggressive, did not want any invasive therapies such as biopsies to pursue the diagnosis of malignancy. They wanted her to be out of pain. , who is the primary decision maker, agre ed with care and comfort measures. The patient was on Rocephin for her UTI. Her urine culture did n ot have any growth. Blood cultures remained negative. The patient was placed on IV fentanyl and IV muscle relaxants and she was having dysphagia and from speech therapy evaluation was not safe to swal low. The patient was also seen by Cardiology; however, due to her condition and due to family's wish es regarding hospice, no intervention was planned by Cardiology. Troponin elevation was likely relat ed to her current medical condition. She did have some elevated creatinine, which improved slightly with IV fluids. Also had some electrolyte abnormalities. The patient was then set up with [facility] home hospice, which she had been previously using. She was discharged in a serious condition as her overa ll prognosis is very poor and will likely succumb to her metastatic disease in a matter of weeks to [facility]. Main goals for her are care and comfort measures to control her pain. The patient to have ca reful hand feeding for comfort. Fall precautions. Total time spent discharging patient was 37 minutes. Physical Examination: General: Awake, alert, confused, in some mild distress. Elderly female, ill appearing. CV: S1, S2. Respiratory: Moving air well bilaterally. Abdomen: Soft, nontender, nondistended. Positive bowel sounds. Extremities: No clubbing, cyanosis, edema. SA/MODL Voice ID: [id number] Report ID: [id number]
== END 2017-08-02 13:10 | disposition hospice, home (50) | DRG 689 ==
LOC: ER 17:19 → ERHOLD 20:26 → 3RD-ICU 21:57 → 4TH 08-01 10:00
PROVIDERS: ADMIT Internal Medicine; ATTEND Internal Medicine
DX: N30.00 Acute cystitis without hematuria (principal); G93.41 Metabolic encephalopathy; E43 Unspecified severe protein-calorie malnutrition; C79.51 Secondary malignant neoplasm of bone; C78.00 Secondary malignant neoplasm of unspecified lung; C79.70 Secondary malignant neoplasm of unspecified adrenal gland; M84.422A Pathological fracture, left humerus, initial encounter for fracture; N17.9 Acute kidney failure, unspecified; R13.10 Dysphagia, unspecified; Z68.25 Body mass index [BMI] 25.0-25.9, adult; E03.9 Hypothyroidism, unspecified; E11.65 Type 2 diabetes mellitus with hyperglycemia; E11.22 Type 2 diabetes mellitus with diabetic chronic kidney disease; N18.9 Chronic kidney disease, unspecified; Z85.3 Personal history of malignant neoplasm of breast; Z66 Do not resuscitate
CPT/HCPCS: 36415; 51702; 70450; 71045; 71250; 72125; 76770; 80048; 80053; 80069; 80076; 81003; 82550; 82553; 82570; 82962; 83605; 83690; 83735; 83880; 83970; 84145; 84156; 84443; 84484; 84550; 85025; 85610; 85730; 86850; 86900; 86901; 87040; 87086; 87088; 93005; 93306; 94760; 96361; 96365; 96375; 99285; J0692; J0696; J1650; J2800; J3010; J3370; J7030